=== PATIENT | female | born 1995 | race Caucasian/White ===

== ENCOUNTER 2020-08-09 15:03 | Observation (INO) | payer OTHER, SELFPAY ==
--- NOTE | ~2020-08-09 | US_ITS ---
US OB limited w BPP DATE: 08/09/2020 16:41 INDICATION: Check cervical length. Biophysical profile. TECHNIQUE: Real-time imaging and Doppler analysis COMPARISON: None FINDINGS: Live single intrauterine gestation, fetus in longitudinal lie, breech presentation. h eart rate of 139 bpm. Amniotic fluid volume appears within normal range. A pocket measuring 5.7 cm depth is noted. The placenta is fundal. Cervical length measures 3.4 cm. Cervical length with pressure is 3.5 cm. BIOPHYSICAL PROFILE reported by feed research technician: breathin out of 2 movement: 2 out of 2 tone: 2 out of 2 Amniotic fluid pocket: 2 out of 2 Total score: 8 out of 8 IMPRESSION: Normal biophysical profile score of 8 out of 8 Cervical length is 3.4 cm Reviewed, dictated and finalized at [facility]. Reviewed, dictated and finalized at location [facility].
[2020-08-09 15:27] VITALS: BP 112/68; PULSE 82
[2020-08-09 15:30] VITALS: BP 109/64; PULSE 79
[2020-08-09 15:45] VITALS: BP 106/70; PULSE 90
[2020-08-09] MEDS: NIFEdipine 30 MG TAB.ER.24 PO (15:45)
[2020-08-09] MEDS: BETAMETHASONE SOD PHOS/ACETATE 30 MG/5 ML VIAL 12 MG IM (15:45)
[2020-08-09 16:00] VITALS: BP 106/38; PULSE 92
[2020-08-09 17:05] VITALS: BP 112/68; PULSE 75
--- NOTE | 2020-08-09 18:11 | LDADM ---
This patient, Lyn Loyd, was admitted to OB Post 117 on 08/09/20 at 15:03. Plans for labor, pain management and were discussed with patient. Patient/family oriented to hospital policies and general routines including ID bracelet, bed and alarms, visiting hours, pain management, procedures, bathroom and other care routines, personal items, smoking policy, room service/diet and guest tray routines, infant security routines, and visiting hours. Patient/Family are encouraged to report perceived risks to care and to ask questions if they do not understand what they are told or what they should do. See OBIX for further documentation.
--- NOTE | 2020-08-12 06:59 | PM.OBTRLD ---
OB - Triage/Final Diagnosis Visit Information Reason for evaluation: threatened labor Evaluation Baseline heart rate: 144 Variability: Moderate (11-25) monitor accelerations: Present monitor decelerations: None Cervical dilation (cm): 2 Cervical effacement (%): 50 station: -3 Final Diagnosis (1) Threatened labor: Code(s): O47.9 - False labor, unspecified Status: Acute
== END 2020-08-09 17:20 | disposition home or self-care (01) ==
PROVIDERS: Admitting Provider Obstetrics & Gynecology; Visit Provider Obstetrics & Gynecology
DX: O47.9 False labor, unspecified (principal); Z3A.00 Weeks of gestation of pregnancy not specified
CPT/HCPCS: 59025; 76815; 76819; 96372; A9270; G0378; G0379; J0702

== ENCOUNTER 2020-09-21 13:09 | Outpatient (CLI) | payer OTHER, SELFPAY ==
--- NOTE | ~2020-09-21 | US_ITS ---
EXAMINATION: US OB BPP wo non-stress DATE: 09/21/2020 14:23 CDT INDICATION: presentation evaluation. TECHNIQUE: Real-time transabdominal obstetric ultrasound. FINDINGS: Comparison to 08/09/2020 There is a single living fetus in breech presentation. The placenta is anterior/fundal without place nta previa. cardiac activity and movement is noted with a heart rate of 136 beats per minute. Biophysical profile: breathin of 2 movement: 2 of 2 tone: 2 of 2 Amniotic flud pocket: 2 of 2 Total score: 8 of 8 IMPRESSION: 1. Single living intrauterine in breech presentation. 2: Total biophysical profile score of 8/8. Reviewed, dictated and finalized at location [facility].
[2020-09-21 13:46] VITALS: BP 112/66; PULSE 72
--- NOTE | 2020-09-21 15:38 | PC.NURSE ---
ULTRASOUND SHOWS BREECH BABY AND WILL DISCUSS WITH DR CHAVIRA PLANS FOR C/S DATE. SENT FOR LABS TO BE DRAWN.
== END 2020-09-21 16:09 | disposition home or self-care (01) ==
LOC: ANHOBOP 13:14 → ANHOBPP 13:16
PROVIDERS: Visit Provider Obstetrics & Gynecology
DX: O32.9XX9 Maternal care for malpresentation of fetus, unspecified, other fetus (principal); Z3A.00 Weeks of gestation of pregnancy not specified
CPT/HCPCS: 36415; 59025; 76819; 85027; 86592; 86850; 86900; 86901; 99199

== ENCOUNTER 2020-09-21 15:26 | Outpatient (CLI) | payer OTHER, SELFPAY ==
[2020-09-21 15:54] LABS: Hematocrit 34.5 % (37.0-47.0); Hemoglobin 11.3 g/dL (12.0-15.0); Mean Corpuscular HGB Conc 32.8 g/dl (32-36); Mean Corpuscular Hemoglobin 30.1 pg (26-34); Mean Platelet Volume 11.2 fl (7.4-10.4); Platelet Count Result 240 k/mm3 (150-375); Red Blood Count 3.75 M/mm3 (4.2-5.4); Red Cell Distribution Width 14.3 % (11.5-14.5); White Blood Count 12.1 K/mm3 (4.5-10.0)
--- NOTE | 2020-09-22 19:34 | PM.IMHP ---
H&P: HPI History of Present Illness Date/Time: 09/22/20 19:34 Chief complaint: Section for breech presentation Narrative: Lyn Loyd is a 25 year old female with a hx of MTHFR, BV, tre, depressive disorder, HSV, HX of premature labor, hyperemesis gravidarum, Trichomonas, depression presents for Primary Low Transverse c section at 39w2d. due to Malpresentation- prashanth breech. I explained her condition procedure and risks including risk bleeding, infection, injury to bladder, bweol , baby, dvt , pneumonia, wound infection, uti and risk of anesthesia . She understands accepts and agrees to proceed informed consent obtained Review of Systems Review of Systems: All systems reviewed & are unremarkable except as noted in HPI and below Constitutional: Constitutional: Reports no additional constitutional complaints Eyes: Eyes: Reports no additional eye complaints ENT: Reports system reviewed and no additional complaints, except as documented Cardiovascular: Cardiovascular: Reports no additional cardiovascular complaints Respiratory: Respiratory: Reports no additional respiratory complaints Gastrointestinal: Gastrointestinal: Reports no additional gastrointestinal complaints Genitourinary: Genitourinary: Reports no additional female genitourinary complaints Musculoskeletal: Musculoskeletal: Reports no additional musculoskeletal complaints Integumentary/Breasts: Skin/Breast: Reports system reviewed and no additional complaints, except as docu Neurologic: Reports system reviewed and no additional complaints, except as documented Psychiatric: Psychiatric: Reports no additional psychiatric complaints Endocrine: Endocrine: Reports no additional endocrine complaints Hematologic/Lymphatic: Hematologic/Lymphatic: Reports no additional hematologic/lymphatic complaints Allergic/Immunologic: Allergic/Immunologic: Reports no additional allergic/immunologic complaints [facility] Past Medical History Medical History (Updated 09/22/20 @ 20:02 by Naseem Stoddard MD) Abnormal GTT (glucose tolerance test) BV (bacterial vaginosis) Tre albicans infection Encounter for female sterilization procedure malpresentation DEEPIKA (generalized anxiety disorder) History of labor Homozygous MTHFR mutation [id number] HSV (herpes simplex virus) anogenital infection Hx of migraines MDD (major depressive disorder) Trichomonas vaginalis (TV) infection Vaginal delivery 04-20-2014, 39 wks 1. M, 6lbs 10oz, Vaginal Vaginal delivery 02-24-2015, 36.3 wks 1. F, 5lbs 7oz, Vaginal Vaginal delivery 07-07-2017, 38.5 wks 1. F, 7lbs 1oz, Vaginal Surgical History Surgical History (Updated 09/22/20 @ 20:03 by Naseem Stoddard MD) History of knee surgery 2008 Family History Family History Mother COPD (chronic obstructive pulmonary disease) Heart disease Hypertension Depression CHF (congestive heart failure) Social History Social History Smoking packs per day: 1 Smoking cigarettes per day: 20.0 Years smoked: 1 Smoking pack-years: 1.00 Smoking status: Former smoker Tobacco type: cigars Second hand tobacco smoke exposure: Yes Alcohol intake: former Drinks per week: 1 Substance use: never Substance use type: does not use Living arrangements: with family Occupation/Education: occupation Additional occupation/education comments: cook; 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
--- NOTE | 2020-09-22 21:04 | WPDHPUPDATE1 ---
History and Physical Update Update Date/Time: 09/23/20 09:04 History and Physical has been reviewed, including an updated exam of the patient. There are NO changes in the patient's condition. Risks, benefits, and alternatives have been discussed and questions answered. Patient agrees to proceed with procedure. Chief complaint: Section for breech presentation Narrative: Lyn Loyd is a 25 year old female with a hx of MTHFR, BV, tre, depressive disorder, HSV, HX of premature labor, hyperemesis gravidarum, Trichomonas, depression presents for Primary Low Transverse c section at 39w2d. due to Malpresentation- prashanth breech. I explained her condition procedure and risks including risk bleeding, infection, injury to bladder, bweol , baby, dvt , pneumonia, wound infection, uti and risk of anesthesia . She understands accepts and agrees to proceed informed consent obtained Female sterilization is desired bilateral salpingectomy to be done at time of c section
--- NOTE | 2020-09-22 21:49 | HP_ITS ---
This report was moved to the correct visit, [id number] on 09/27/20. Original report was signed by Dr. Stoddard on 09/22/20 at 2145. Obstetrics - Admit Note Admission Note: record reviewed. No pertinent additions to the history and/or any subsequent changes in the physical findings that are not consistent with the expected course of the were found. Additions to the history and/or subsequent changes in the physical findings follow. None. History and Physical has been reviewed, including an updated exam of the patient. There are NO changes in the patient's condition. Risks, benefits, and alternatives have been discussed and questions answered. Patient agrees to proceed with procedure. Chief complaint: Section for breech presentation Narrative: Lyn Loyd is a 25 year old female with a hx of MTHFR, BV, tre, depressive disorder, HSV, HX of premature labor, hyperemesis gravidarum, Trichomonas, depression presents for Primary Low Transverse c section at 39w2d. due to Malpresentation- prashanth breech. I explained her condition procedure and risks including risk bleeding, infection, injury to bladder, bweol , baby, dvt , pneumonia, wound infection, uti and risk of anesthesia . She understands accepts and agrees to proceed informed consent obtained Female sterilization is desired bilateral salpingectomy to be done at time of primary c section 09/23/20 Report Initialized date/time: Naseem Stoddard MD 09/22/202148 Electronically signed by: Naseem Stoddard MD 09/22/202148 [facility]
[2020-09-23 09:32] LABS: Rapid Plasma Reagin Non-Reactive (NonReactive)
== END 2020-09-21 15:27 | disposition home or self-care (01) ==
LOC: ANHLAB 15:28
PROVIDERS: Visit Provider Obstetrics & Gynecology
DX: Z01.818 Encounter for other preprocedural examination (principal)
CPT/HCPCS: 36415; 85027; 86592; 86850; 86900; 86901

== ENCOUNTER 2020-09-23 08:32 | Inpatient (IN) | payer OTHER, SELFPAY ==
--- NOTE | 2020-09-22 19:34 | HP_ITS ---
This report was moved to the correct visit, [id number] on 09/27/20. Original report was signed by Dr. Stoddard on 09/22/20 at 2100. H&P: HPI History of Present Illness Date/Time: 09/22/20 19:34 Chief complaint: Section for breech presentation Narrative: Lyn Loyd is a 25 year old female with a hx of MTHFR, BV, tre, depressive disorder, HSV, HX of premature labor, hyperemesis gravidarum, Trichomonas, depression presents for Primary Low Transverse c section at 39w2d. due to Malpresentation- prashanth breech. I explained her condition procedure and risks including risk bleeding, infection, injury to bladder, bweol , baby, dvt , pneumonia, wound infection, uti and risk of anesthesia . She understands accepts and agrees to proceed informed consent obtained Review of Systems Review of Systems: All systems reviewed & are unremarkable except as noted in HPI and below Constitutional: Constitutional: Reports no additional constitutional complaints Eyes: Eyes: Reports no additional eye complaints ENT: Reports system reviewed and no additional complaints, except as documented Cardiovascular: Cardiovascular: Reports no additional cardiovascular complaints Respiratory: Respiratory: Reports no additional respiratory complaints Gastrointestinal: Gastrointestinal: Reports no additional gastrointestinal complaints Genitourinary: Genitourinary: Reports no additional female genitourinary complaints Musculoskeletal: Musculoskeletal: Reports no additional musculoskeletal complaints Integumentary/Breasts: Skin/Breast: Reports system reviewed and no additional complaints, except as docu Neurologic: Reports system reviewed and no additional complaints, except as documented Psychiatric: Psychiatric: Reports no additional psychiatric complaints Endocrine: Endocrine: Reports no additional endocrine complaints Hematologic/Lymphatic: Hematologic/Lymphatic: Reports no additional hematologic/lymphatic complaints Allergic/Immunologic: Allergic/Immunologic: Reports no additional allergic/immunologic complaints [facility] Past Medical History Medical History (Updated 09/22/20 @ 20:02 by Naseem Stoddard MD) Abnormal GTT (glucose tolerance test) BV (bacterial vaginosis) Tre albicans infection Encounter for female sterilization procedure malpresentation DEEPIKA (generalized anxiety disorder) History of labor 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 M, 6lbs 10oz, Vaginal Vaginal delivery 02-24-2015, 36.3 wks 1. F, 5lbs 7oz, Vaginal Vaginal delivery 07-07-2017, 38.5 wks 1. F, 7lbs 1oz, Vaginal Surgical History Surgical History (Updated 09/22/20 @ 20:03 by Naseem Stoddard MD) History of knee surgery 2008 Family History Family History Mother COPD (chronic obstructive pulmonary disease) Heart disease Hypertension Depression CHF (congestive heart failure) Social History Social History Smoking packs per day: 1 Smoking cigarettes per day: 20.0 Years smoked: 1 Smoking pack-years: 1.00 Smoking status: Former smoker Tobacco type: cigars Second hand tobacco smoke exposure: Yes Alcohol intake: former Drinks per week: 1 Substance use: never Substance use type: does not use Living arrangements: with family Occupation/Education: occupation Additional occupation/education comments:
--- NOTE | 2020-09-22 21:06 | PN_ITS ---
This report was moved to the correct visit, [id number] on 09/27/20. Original report was signed by Dr. Stoddard on 09/22/20 at 4752. History and Physical Update Update Date/Time: 09/23/20 09:04 History and Physical has been reviewed, including an updated exam of the patient. There are NO changes in the patient's condition. Risks, benefits, and alternatives have been discussed and questions answered. Patient agrees to proceed with procedure. Chief complaint: Section for breech presentation Narrative: Lyn Loyd is a 25 year old female with a hx of MTHFR, BV, tre, depressive disorder, HSV, HX of premature labor, hyperemesis gravidarum, Trichomonas, depression presents for Primary Low Transverse c section at 39w2d. due to Malpresentation- prashanth breech. I explained her condition procedure and risks including risk bleeding, infection, injury to bladder, bweol , baby, dvt , pneumonia, wound infection, uti and risk of anesthesia . She understands accepts and agrees to proceed informed consent obtained Female sterilization is desired bilateral salpingectomy to be done at time of c section Report Initialized date/time: Naseem Stoddard MD 09/22/202105 Electronically signed by: Naseem Stoddard MD 09/22/20 [id number] [facility]
[2020-09-23] VITALS (58 sets, daily range): BP systolic 76–153; BP diastolic 46–127; PULSE 44–197; RESP 13–20; TEMP 35.7–36.8; O2SAT 96–100; BMI 39.2
[2020-09-23] MEDS: LACTATED RINGERS 1,000 ML 125 ML IV CONT (09:15)
--- NOTE | 2020-09-23 09:43 | WPDANESEPPF ---
Anes - Initial Pre Proc Eval Procedure: Operation Date: 09/23/20 10:30 Proposed Procedures p Primary Low Transverse Section With Bilateral Tubaligation - Naseem Stoddard MD Date/Time: 09/23/20 09:43 Surgeon: Naseem Stoddard MD Pre Op Diagnosis: scheduled Patient Data Age: 25 Gender: F Height: 5 ft 4 in Weight: 103.64 kg Last Vital Signs Pulse 78 09/23/20 08:50 BP 107/66 09/23/20 08:50 Allergies Allergy/AdvReac Type Severity Reaction Status Date / Time Sulfa (Sulfonamide Allergy Mild Hives / Verified 10/22/17 09:51 Antibiotics) Red Face vancomycin Allergy Mild Hives / Verified 10/22/17 09:51 Red Face Home Medications Medication Instructions Recorded Confirmed Type nifedipine [Procardia XL] 30 mg PO QAM #30 tablet 08/09/20 Rx Patient hx anesthesia problems: none Family hx anesthesia problems: none PMFSH Past Medical History Medical History Abnormal GTT (glucose tolerance test) BV (bacterial vaginosis) Neyda albicans infection Encounter for female sterilization procedure malpresentation DEEPIKA (generalized anxiety disorder) History of labor Homozygous MTHFR mutation [id number] HSV (herpes simplex virus) anogenital infection Hx of migraines MDD (major depressive disorder) Trichomonas vaginalis (TV) infection Vaginal delivery 04-20-2014, 39 wks 1. M, 6lbs 10oz, Vaginal Vaginal delivery 02-24-2015, 36.3 wks 1. F, 5lbs 7oz, Vaginal Vaginal delivery 07-07-2017, 38.5 wks 1. F, 7lbs 1oz, Vaginal Surgical History Surgical History History of knee surgery 2008 Family History Family History Mother COPD (chronic obstructive pulmonary disease) Heart disease Hypertension Depression CHF (congestive heart failure) Social History Social History Smoking packs per day: 1 Smoking cigarettes per day: 20.0 Years smoked: 1 Smoking pack-years: 1.00 Smoking status: Former smoker Tobacco type: cigars Second hand tobacco smoke exposure: Yes Alcohol intake: former Drinks per week: 1 Substance use: never Substance use type: does not use Additional occupation/education comments: [employer]; 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 Gender identity (if verbalized by the patient): Female Sexual Orientation (if Verbalized by the Patient): Straight or Heterosexual Spiritual care concerns: No Agree to blood products: Yes Anes - Eval Final PreProcedure Day of Procedure 09/23/20 09:43 Patient weight: obese Heart: regular rate and rhythm Lungs: clear to auscultation Airway: Mallampati scale class II Neurological: alert and oriented Last oral intake: >/= 8 hours ASA classification: II Emergent: no Anesthetic plan: proceed Anesthesia type and monitoring: regional spinal and standard monitoring Informed Consent: The patient's anesthetic plan and its attendant risks and benefits were discussed with the patient/family/POA. Questions were solicited and answers provided to the satisfaction of the patient/family/POA.
--- NOTE | 2020-09-23 09:47 | PM.OBPNLAB ---
Pain Control Date/time seen: 09/23/20 09:47 Comments: US Performed at the bedside confirmed a prashanth breech presentation 25-year-old 39 weeks to undergo primary low transverse section under spinal anesthesia with bilateral tubal sterilization and bilateral salpingectomy the ID pH tubal consent forms are signed and in chart Pelvic Exam Dilation (cm): 0 Effacement (%): 0 station: -4 Amniotic membrane status: Intact Contractions Monitor mode: None Status status: Category l Assessment and Plan Assessment: other ( term malpresentation breech desires bilateral tubal sterilization) Plan: ( primary low-transverse section with bilateral tubal sterilization bilateral salpingectomy under spinal anesthesia)
--- NOTE | 2020-09-23 10:49 | LDADM ---
This patient, Lyn Loyd, was admitted to Labor/Delivery/Recovery 120 on 09/23/20 at 08:32. Plans for scheduled section, pain management and were discussed with patient. Patient/family oriented to hospital policies and general routines including ID bracelet, bed and alarms, visiting hours, pain management, procedures, bathroom and other care routines, personal items, smoking policy, room service/diet and guest tray routines, security routines, and visiting hours. Patient/Family are encouraged to report perceived risks to care and to ask questions if they do not understand what they are told or what they should do. See OBIX for further documentation.
--- NOTE | 2020-09-23 11:09 | PM.OBPRVD ---
OB - Delivery Note Procedure Delivery date: 09/23/20 Procedure: Procedures Operation Date: 09/23/20 10:30 Primary low-transverse section with delivery of viable female infant and placenta Bilateral tubal sterilization with bilateral salpingectomy Intrapartal events: Abnormal Presentation ( prashanth breech presentation) Induction method: none Delivery monitor: external FHT and external uterine Route of delivery: ( primary low transverse with breech extraction) Episiotomy description: None Laceration Description: None Specimen: Yes ( placenta cord blood gases cord blood right and left fallopian tube) Estimated blood loss (mL): 310 Anesthesia type: Spinal Disposition: floor Baby Date of : 09/23/20 Time of : 10:11 Weeks of gestation at delivery: 39 Infant gender: Female Weight (pounds): 7 Weight (ounces): 2 presentation: prashanth breech position: Right Sacrum Anterior Placenta delivery description: Manual Removal and Normal Configuration cord vessel description: 3 Vessels and Clamped/Cut ( short cord) score one minute: 8 score five minutes: 9
--- NOTE | 2020-09-23 11:15 | PM.PROC ---
Procedure Note - Detailed Date of procedure: 09/23/20 Pre-op diagnosis: scheduled term malpresentation -prashanth breech desires bilateral tubal sterilization major depressive disorder homozygous MTHFR mutation Generalized anxiety disorder HSV History of Trichomonas, BV, Neyda Post-op diagnosis: same ( delivered viable female infant prashanth breech presentation adhesions fallopian tubes) Procedure performed: primary low transverse section with breech extraction and delivery of viable female and placenta Adhesiolysis with fallopian tubes Bilateral tubal sterilization with bilateral salpingectomy Description of procedure: informed consent obtained, ultrasound confirmed prashanth breech presentation, [facility] tubal consent forms in chart signed and dated and the patient was taken to the operating room where spinal anesthesia was administered. The abdomen was prepped and draped in the usual sterile fashion the abdomen was marked and an anesthesiometer was used to test for adequate anesthesia. A time-out was performed A Pfannenstiel incision was made with a sharp blade to the skin in the abdomen was opened in layers using electrocautery for hemostasis Viviane's fascia was taken down with electrocautery the fascia was incised with electrocautery and extended bilaterally with [facility] clamps placed on the anterior fascia the fascia was undermined superiorly and then inferiorly. The rectus muscles were in the midline and then the peritoneum was entered with electrocautery and extended vertically. Digital dissection of the peritoneum was followed by a transverse incision to the lower uterine segment and entry to the intrauterine cavity revealed clear amniotic fluid. The uterine incision was digitally dissected bilaterally buttocks was then delivered via the abdominal incision with the legs being delivered the cord was lengthened the arms were swept across the chest anteriorly and the vertex was then delivered with modified Gerri maneuver the and the baby was placed on the maternal abdomen there was spontaneous respirations and cry the umbilical cord was clamped and cut and the was handed to the nursery nurse in attendance. scores given 9 and 9 weight 7 lb 2 oz taken to nursery in stable condition. Placenta was then delivered manually after cord gases segment was obtained and cord blood was obtained and the uterus was externalized with blood and clots were removed from the intrauterine cavity the uterus contracted well with Pitocin as well as 10 units into the myometrium. The uterine incision was then closed in 2 layers with 0 Vicryl suture in a running interlocking stitch fashion the 2nd being an imbricating stitch hemostasis was excellent along the uterine incision. Following this the bilateral tubal sterilization was performed after adhesiolysis of the fallopian tubes bilaterally. The fallopian tubes were traced out to the fimbriated aspect and held with [place] clamps in a bilateral sequential fashion the arcuate vessels were isolated and the fimbria ovarica vessels were isolated and the the proximal tube was clamped the arcuate vessel and fimbria 0 varicose vessels were clamped. Electrocautery was used to excise the fallopian tubes in a bilateral fashion and these were sent off for pathologic confirmation. The pedicles were then suture ligated with 2 0 silk suture doubly at the proximal tube the arcuate vessel and the fimbrial varicose in a sequential fashion with electrocautery being used on the pedicles hemostasis was excellent. Irrigation was then performed in the cul-de-sac was cleared of blood and clots with lap sponges the uterus was returned to the peritoneal the pedicles were hemostatic blood clots removed from both lateral margins the sponge needle and instrument counts correct then the anterior peritoneum was closed with the rectus muscles in a runn
[2020-09-23] MEDS: OXYTOCIN 30 UNITS/NS 500 ML 30 UNITS/500 ML BAG 125 UNITS IV CONT (11:53)
[2020-09-23] MEDS: KETOROLAC 30 MG/ML VIAL (*BKC) IV PUSH ×2 (12:22→19:01)
--- NOTE | 2020-09-23 13:17 | OBPPTRN ---
Patient transferred to post room #284 via stretcher. Support person present. Oriented to unit, room, information board, rooming in, admission packet and security measures. Patient verbalizes understanding.
--- NOTE | 2020-09-23 13:24 | PM.OBDSVD ---
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: Code(s): E72.12 - Methylenetetrahydrofolate reductase deficiency Status: Acute (5) MDD (major depressive disorder): Code(s): F32.9 - Major depressive disorder, single episode, unspecified Status: Acute (6) HSV (herpes simplex virus) anogenital infection: Code(s): A60.9 - Anogenital herpesviral infection, unspecified Status: Acute (7) DEEPIKA (generalized anxiety disorder): Code(s): F41.1 - Generalized anxiety disorder Status: Acute OB - DS: Summary Hospital Course Time spent discussing smoking cessation with patient: 3 to 10 minutes OB Procedures : Ultrasound OB Procedures Intrapartum: Breech extraction, low cervical, transverse and Tubal ligation OB Procedures: : P.P. tubal ligation Peripartum Data Delivery Method: Section (Primary low transverse) Laceration description: None Episiotomy description: None Procedures: Procedures Operation Date: 09/23/20 10:30 Actual Procedures Side Surgeon p Primary Low Transverse Section With Bilateral Tubaligation Bilateral Naseem Stoddard MD complications: none [place] 1: Gender: Female Disposition of : home Status at Discharge Functional status at discharge: independent ambulation Overall status at discharge: patient is back to baseline Time Spent with Patient Time attestation: Total time spent providing and/or coordinating discharge services: Time spent: Less than 30 minutes Exam Const: General: comfortable and no acute distress Orientation/consciousness: patient oriented x3 Limitations: no limitations Chest: Breast/axilla inspection: normal inspection of the breasts Breast/axilla palpation: normal palpation of the breasts Resp: Effort & Inspection: normal respiratory effort Auscultation: clear to auscultation bilaterally Cardio: Rate: regular rate GI: GI Palp: Yes Soft to palpation and Yes Firmness to palpation present (GI) ( uterus) Percussion: Yes normal to percussion Auscultation: normal bowel sounds : General: Yes bladder normal to inspection and Yes no CVA tenderness Psych: Appearance: grossly normal Mental Status: mental status grossly normal Affect: normal affect Attitude: cooperative Thought content: Yes Normal thought content present Judgement: Good judgement present (Psych) DS: Data Data Completed and Pending Pending studies at discharge: Pending at discharge 09/23/20 10:28 Surgical [PTH] Routine Surgical [PTH] Routine Discharge Plan Discharge Attending physician on discharge: Naseem Stoddard Discharging Clinician: Naseem Stoddard Anticipated Discharge Date/Time: 09/25/20 13:29 Patient Disposition: Home, Self-Care Activity: may shower, no straining, no driving and may drive after 2 weeks Diet: as tolerated and regular Wound Care Instructions: follow printed instructions Discharge Instructions: routine Patient Instructions: Antibiotic Form Stand Alone Forms: General Discharge Information Follow-up/Referrals: Naseem Stoddard MD [Physician] - 3 Weeks Discharge Medications: New hydrocodone-acetaminophen 5-325 mg Tablet 1 tab PO Q6H PRN (Reason: Moderate Pain (4-6)) Qt
[2020-09-23] MEDS: HYDROcodone/acetaminophen (*CRX) 10-325 MG TABLET 1 TAB PO ×2 (15:16→19:06)
[2020-09-23] MEDS: DOCUSATE SODIUM 100 MG CAPSULE PO (15:16)
[2020-09-23] MEDS: DEXTROSE 5%/0.45% SOD CHL 1,000 ML 125 ML IV CONT (16:25)
[2020-09-23] MEDS: diphenhydrAMINE HCl INJ 50 MG/ML VIAL 25 MG IV PUSH (19:01)
[2020-09-24] MEDS: HYDROcodone/acetaminophen (*CRX) 5-325 MG TABLET 1 TAB PO ×6 (00:18→23:20)
[2020-09-24] MEDS: KETOROLAC 30 MG/ML VIAL (*BKC) IV PUSH (00:19)
[2020-09-24 04:30] VITALS: BP 95/60; PULSE 60; RESP 18; TEMP 36.6; O2SAT 99
[2020-09-24 06:16] LABS: Basophils Percent Auto 0.2 % (0.2-1.2); Eosinophils Absolute Auto 0.1 K/mm3 (0-0.3); Eosinophils Percent Auto 0.8 % (0-4.4); Hematocrit 26.8 % (37.0-47.0); Hemoglobin 8.7 g/dL (12.0-15.0); Immature Granulocyte Absolute 0.03 K/mm3 (0.00-0.031); Immature Granulocyte Percent A 0.3 % (0-0.5); Lymphocytes Absolute Auto 1.81 K/mm3 (0.9-3.2); Lymphocytes Percent Auto 20.8 % (18.3-44.2); Mean Corpuscular HGB Conc 32.5 g/dl (32-36); Mean Corpuscular Hemoglobin 29.7 pg (26-34); Mean Corpuscular Volume 91.5 fl (80-100); Monocytes Absolute Auto 0.6 K/mm3 (0.1-0.6); Monocytes Percent Auto 6.7 % (2.6-8.5); Neutrophils Absolute Auto 6.2 K/mm3 (1.3-6.7); Neutrophils Percent Auto 71.2 % (45.5-73.1); Platelet Count Result 175 k/mm3 (150-375); Red Blood Count 2.93 M/mm3 (4.2-5.4); Red Cell Distribution Width 14.3 % (11.5-14.5); White Blood Count 8.7 K/mm3 (4.5-10.0)
[2020-09-24 07:30] VITALS: BP 89/46; PULSE 64; RESP 16; TEMP 36.1; O2SAT 100
[2020-09-24] MEDS: DOCUSATE SODIUM 100 MG CAPSULE PO ×2 (07:36→17:31)
[2020-09-24] MEDS: IBUPROFEN 600 MG TABLET PO ×3 (07:36→19:27)
[2020-09-24] MEDS: POLYSACCHARIDE IRON COMPLEX 150 MG CAPSULE PO ×2 (07:36→17:31)
--- NOTE | 2020-09-24 08:41 | WPDANLDPN2 ---
Anes-Prog Note L&D Date/Time: 09/24/20 08:41 Comfortable throughout: section Neuraxial method: spinal Epidural/Spinal procedure site: clean & non-tender Neuro status: Neuro function grossly intact. Cardiovascular status: normal Respiratory status: normal Airway patency: baseline Mental status: baseline Post-Op hydration status: normal Vital Signs: Last Vital Signs Temp 36.1 C L 09/24/20 07:30 Pulse 64 09/24/20 07:30 Resp 16 09/24/20 07:30 BP 89/46 L 09/24/20 07:30 Pulse Ox 100 09/24/20 07:30 Pain score (VAS): 12/11 I/O: Intake & Output 09/23/20 09/24/20 09/24/20 23:59 07:59 15:59 Intake Total 500 2200 300 Output Total 100 2050 300 Balance 400 150 0 Post-procedural complaints: none Patient feedback: Patient satisfied with anesthetic care.
--- NOTE | 2020-09-24 08:42 | WPDANLDNPN2 ---
Anes-Prog Note L&D-Neuraxial Date/Time: 09/24/20 08:42 Neuraxial medications: intrathecal PF morphine Opiod-related complaints: none Patient feedback: Patient satisfied with post-operative pain management.
--- NOTE | 2020-09-24 08:58 | P.DS_ITS ---
DS: Admitting Diagnosis Admitting Diagnosis Admitting Diagnosis: scheduled OB - DS: Summary OB Procedures : None OB Procedures Intrapartum: and Tubal ligation OB Procedures: : None Peripartum Data Procedures: Procedures Operation Date: 09/23/20 10:30 Actual Procedures Side Surgeon p Primary Low Transverse Section With Bilateral Tubaligation Bilateral Naseem Stoddard MD Time Spent with Patient Time attestation: Total time spent providing and/or coordinating discharge services: DS: Data Data Completed and Pending Pending studies at discharge: Pending at discharge 09/23/20 10:28 Surgical [PTH] Routine Surgical [PTH] Routine Labs on day of discharge: Labs from last 24 hours 09/24/20 04:37 WBC 8.7 RBC 2.93 L Hgb 8.7 L Hct 26.8 L MCV 91.5 MCH 29.7 MCHC 32.5 RDW 14.3 Plt Count 175 MPV 12.0 H Immature Gran % (Auto) 0.3 Neut % (Auto) 71.2 Lymph % (Auto) 20.8 [place] % (Auto) 6.7 Eos % (Auto) 0.8 Baso % (Auto) 0.2 Lymph # (Auto) 1.81 [place] # (Auto) 0.6 Eos # (Auto) 0.1 Baso # (Auto) 0.0 Abs Immat Gran (auto) 0.03 Absolute Neuts (auto) 6.2 Absolute Nucleated RBC 0.0 Nucleated RBC % 0.0 Discharge Plan Discharge Attending physician on discharge: Naseem Stoddard Discharging Clinician: Naseem Stoddard Anticipated Discharge Date/Time: 09/25/20 13:29 Patient Disposition: Home, Self-Care Activity: may shower, no straining, no driving and may drive after 2 weeks Diet: as tolerated and regular Wound Care Instructions: follow printed instructions Discharge Instructions: routine Patient Instructions: Antibiotic Form Stand Alone Forms: General Discharge Information Follow-up/Referrals: Naseem Stoddard MD [Physician] - 3 Weeks Discharge Medications: New hydrocodone-acetaminophen 5-325 mg Tablet 1 tab PO Q6H PRN (Reason: Moderate Pain (4-6)) Qty: 28 RF: 0 polysaccharide iron complex 150 mg iron Capsule 150 mg PO BIDWM Qty: 1120 RF: 2 ibuprofen 600 mg Tablet 600 mg PO Q6H Qty: 1000 RF: 2 KPN Tablet 1 tab PO DAILY Qty: 100 RF: 2 No Action No Home Medications RF: 0 Date of admission: 09/23/20 08:32 Primary Care Provider: PHYSICIAN,NETWORK SYSTEMS ADMINISTRATOR Admitting Provider: Naseem Stoddard Attending physician on admission: Naseem Stoddard Condition: Stable
--- NOTE | 2020-09-24 08:59 | P.PNOB_ITS ---
OB - PN: Subj Subjective Date/time seen: 09/24/20 08:59 Diet/ambulation/void/stool without difficulty. No other c/o. Pain well controlled. OB - PN: Obj Data Labs CBC & Chem 7: 09/24/20 04:37 Labs: Laboratory Results - last 24 hr 09/24/20 04:37 WBC 8.7 RBC 2.93 L Hgb 8.7 L Hct 26.8 L MCV 91.5 MCH 29.7 MCHC 32.5 RDW 14.3 Plt Count 175 MPV 12.0 H Immature Gran % (Auto) 0.3 Neut % (Auto) 71.2 Lymph % (Auto) 20.8 [place] % (Auto) 6.7 Eos % (Auto) 0.8 Baso % (Auto) 0.2 Lymph # (Auto) 1.81 [place] # (Auto) 0.6 Eos # (Auto) 0.1 Baso # (Auto) 0.0 Abs Immat Gran (auto) 0.03 Absolute Neuts (auto) 6.2 Absolute Nucleated RBC 0.0 Nucleated RBC % 0.0 OB - PN A/P Plan day: 1 Plan: routine care Comments: discharge home tomorrow if no change. Time Spent With Patient Time: Total time spent is greater than 50% in coordination of care (as documented) at patient's floor/unit and/or counseling patient:
[2020-09-24] MEDS: HYDROcodone/acetaminophen (*CRX) 10-325 MG TABLET 1 TAB PO (13:40)
[2020-09-24] MEDS: SIMETHICONE 80 MG TAB.CHEW PO ×2 (13:41→17:31)
[2020-09-24 19:30] VITALS: BP 99/54; PULSE 75; RESP 16; TEMP 36.1; O2SAT 100
--- NOTE | 2020-09-24 20:12 | PC.NURSE ---
Patient viewed the discharge video Mother & Baby Care, The First Two Weeks . Patient was given the opportunity and encouraged to ask questions. Patient verbalized understanding of information shared and has been given the mother/baby guide for home reference.
[2020-09-25] MEDS: IBUPROFEN 600 MG TABLET PO ×2 (04:55→11:16)
[2020-09-25] MEDS: HYDROcodone/acetaminophen (*CRX) 5-325 MG TABLET 1 TAB PO ×3 (04:55→11:16)
[2020-09-25 08:00] VITALS: BP 92/53; PULSE 66; RESP 18; TEMP 36.3
[2020-09-25] MEDS: POLYSACCHARIDE IRON COMPLEX 150 MG CAPSULE PO (08:06)
[2020-09-25] MEDS: SIMETHICONE 80 MG TAB.CHEW PO (08:06)
[2020-09-25] MEDS: DOCUSATE SODIUM 100 MG CAPSULE PO (08:06)
--- NOTE | 2020-09-25 09:22 | PM.OBDSVD ---
DS: Admitting Diagnosis Admitting Diagnosis Admitting Diagnosis: scheduled OB - DS: Summary OB Procedures : None OB Procedures Intrapartum: OB Procedures: : None Peripartum Data Procedures: Procedures Operation Date: 09/23/20 10:30 Actual Procedures Side Surgeon p Primary Low Transverse Section With Bilateral Tubaligation Bilateral Naseem Stoddard MD Time Spent with Patient Time attestation: Total time spent providing and/or coordinating discharge services: DS: Data Data Completed and Pending Pending studies at discharge: Pending at discharge 09/23/20 10:28 Surgical [PTH] Routine Surgical [PTH] Routine Discharge Plan Discharge Attending physician on discharge: Naseem Stoddard Discharging Clinician: Naseem Stoddard Anticipated Discharge Date/Time: 09/25/20 13:29 Patient Disposition: Home, Self-Care Activity: may shower, no straining, no driving and may drive after 2 weeks Diet: as tolerated and regular Wound Care Instructions: follow printed instructions Discharge Instructions: routine Patient Instructions: Antibiotic Form Stand Alone Forms: General Discharge Information Follow-up/Referrals: Naseem Stoddard MD [Physician] - 3 Weeks Discharge Medications: New ibuprofen 600 mg Tablet 600 mg PO Q6H Qty: 1000 RF: 2 polysaccharide iron complex 150 mg iron Capsule 150 mg PO BIDWM Qty: 1120 RF: 2 KPN Tablet 1 tab PO DAILY Qty: 100 RF: 2 hydrocodone-acetaminophen 5-325 mg Tablet 1 tab PO Q6H PRN (Reason: Moderate Pain (4-6)) Qty: 28 RF: 0 hydrocodone-acetaminophen [[place]] 5-325 mg tablet 1 tablet PO Q6H PRN (Reason: pain) Qty: 30 RF: 0 ibuprofen 800 mg tablet 800 mg PO TID Qty: 30 RF: 0 Date of admission: 09/23/20 08:32 Primary Care Provider: PHYSICIAN,[employer] Admitting Provider: Naseem Stoddard Attending physician on admission: Naseem Stoddard Condition: Stable
--- NOTE | 2020-09-25 10:12 | PC.NURSE ---
[phone] Judd's exchange stating pt's printed Rx for pain meds for discharge is not signed; pt will need pain med Rx. [phone] Judd. He was told the above and stated he would be in this morning to assure pt had Rx for discharge. [phone] Judd stating he electronically sent Rx for pt to her stated pharmacy.
[2020-09-25] MEDS: MULTIVIT/MIN/PREN/FOL AC/IRON TABLET 1 TAB PO (11:16)
--- NOTE | 2020-09-27 06:59 | HP_ITS ---
This report was moved to the correct visit, [id number] on 09/27/20. Original report was signed by Dr. Stoddard on 09/22/20 at 2141. Obstetrics - Admit Note Admission Note: record reviewed. No pertinent additions to the history and/or any subsequent changes in the physical findings that are not consistent with the expected course of the were found. Additions to the history and/or subsequent changes in the physical findings follow. None. History and Physical has been reviewed, including an updated exam of the patient. There are NO changes in the patient's condition. Risks, benefits, and alternatives have been discussed and questions answered. Patient agrees to proceed with procedure. Chief complaint: Section for breech presentation Narrative: Lyn Loyd is a 25 year old female with a hx of MTHFR, BV, tre, depressive disorder, HSV, HX of premature labor, hyperemesis gravidarum, Trichomonas, depression presents for Primary Low Transverse c section at 39w2d. due to Malpresentation- prashanth breech. I explained her condition procedure and risks including risk bleeding, infection, injury to bladder, bweol , baby, dvt , pneumonia, wound infection, uti and risk of anesthesia . She understands accepts and agrees to proceed informed consent obtained Female sterilization is desired bilateral salpingectomy to be done at time of primary c section 09/23/20 Report Initialized date/time: Naseem Stoddard MD 09/22/202148 Electronically signed by: Naseem Stoddard MD 09/22/202148 Dictated By: Naseem Stoddard MD 09/22/202148 [facility]
== END 2020-09-25 12:00 | disposition home or self-care (01) | DRG 540 ==
LOC: ANHLDR 09-27 09:12 → ANHOB2 09-27 09:12
PROVIDERS: Admitting Provider Obstetrics & Gynecology; Visit Provider Obstetrics & Gynecology
PROC: 10D00Z1 Extraction of Products of Conception, Low, Open Approach (ICD-10-PCS; CPT 59514; principal; 2020-09-23 10:30)
DX: O32.1XX0 Maternal care for breech presentation, not applicable or unspecified (principal); Z37.0 Single live birth; Z3A.39 39 weeks gestation of pregnancy; O99.284 Endocrine, nutritional and metabolic diseases complicating childbirth; E72.12 Methylenetetrahydrofolate reductase deficiency; O99.344 Other mental disorders complicating childbirth; F32.9 Major depressive disorder, single episode, unspecified; F41.1 Generalized anxiety disorder; O98.32 Other infections with a predominantly sexual mode of transmission complicating childbirth; A60.00 Herpesviral infection of urogenital system, unspecified; Z30.2 Encounter for sterilization; O99.214 Obesity complicating childbirth; E66.9 Obesity, unspecified
CPT/HCPCS: 36415; 85025; 88302; 88307; A9270; J0131; J1200; J1885; J2274; J2370; J2405; J2590; J7120

== ENCOUNTER 2022-12-03 09:27 | Emergency (ER) | payer OTHER, SELFPAY ==
[2022-12-03 09:59] VITALS: BP 119/76; PULSE 79; RESP 16; TEMP 36.6; O2SAT 100
--- NOTE | 2022-12-03 12:33 | PC.NURSE ---
pt not in lobby when called for xray
== END 2022-12-03 12:33 | disposition left against medical advice (07) ==
DX: Z53.21 Procedure and treatment not carried out due to patient leaving prior to being seen by health care provider (principal)
CPT/HCPCS: 99199